=== PATIENT | female | born 1930 | race Caucasian/White ===

== ENCOUNTER 2017-08-07 21:51 | Emergency (ER) | payer MEDICARE, OTHER ==
[2017-08-07] MEDS ORDERED: predniSONE 10 MG Tab PO ONE (23:34)
[2017-08-07] MEDS ORDERED: diphenhydrAMINE 25 MG Cap PO ONE (23:35)
[2017-08-07] MEDS ORDERED: Famotidine 20 MG Tab PO ONE (23:35)
--- NOTE | 2017-08-07 23:45 | EDM.PDOC ---
ED HPI GENERAL MEDICAL PROBLEM - General Chief Complaint: Skin Complaint Stated Complaint: RASH Time Seen by Provider: 08/07/17 23:40 Source of Information: Reports: Patient History Limitations: Reports: No Limitations - History of Present Illness INITIAL COMMENTS - FREE TEXT/NARRATIVE: 86 yo female presents with onset of an itchy rash early this evening. Is on no new med and can't think of anything she ate that may be causing this. No self tx before arrival. Onset: Today Onset Date: 08/07/17 Onset Time: 19:00 Duration: Hour(s):, Getting Worse Location: Reports: Generalized (Worse medial thighs) Quality: Reports: Other (pruritic) Severity: Moderate Improves with: Reports: None Worsens with: Reports: Other (time) Context: Reports: Other (unknown) Associated Symptoms: Reports: No Other Symptoms Treatments DIRECTOR OF BUSINESS SERVICES: Reports: Other (see below) (none) Generalized Pain Score (Numeric/FACES): 5 - Related Data Allergies Allergy/AdvReac Type Severity Reaction Status Date / Time Penicillins Allergy Rash Verified 08/07/17 23:08 Home Meds: Home Meds Hydrochlorothiazide [Hydrochlorothiazide] 1 tab PO DAILY 08/07/17 [History] Levothyroxine 1 tab PO DAILY 08/07/17 [History] Prednisone [IJD: Prednisone] 10 mg PO ASDIRECTED #18 tab 08/07/17 [Rx] Past Medical History HEENT History: Reports: Hard of Hearing, Impaired Vision Cardiovascular History: Reports: Hypertension 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 Oncologic Surgical History: Reports: Lumpectomy Social & Family History - Tobacco Use Smoking Status *Q: Never Smoker Second Hand Smoke Exposure: No - Caffeine Use Caffeine Use: Reports: Coffee, Tea - Alcohol Use Days Per Week of Alcohol Use: 0 - Recreational Drug Use Recreational Drug Use: No ED ROS GENERAL - Review of Systems Review Of Systems: See Below Constitutional: Reports: No Symptoms HEENT: Reports: No Symptoms Respiratory: Reports: No Symptoms Cardiovascular: Reports: No Symptoms Skin: Reports: Pruritis, Erythema. Denies: Urticaria Neurological: Reports: No Symptoms ED EXAM, SKIN/RASH Exam: See Below Exam Limited By: No Limitations General Appearance: Alert, WD/WN, No Apparent Distress Eye Exam: Bilateral Eye: Normal Inspection Ears: Normal External Exam, Normal Canal, Hearing Grossly Normal Nose: Normal Inspection, Normal Mucosa, No Blood Throat/Mouth: Normal Inspection, Normal Lips, Normal Oropharynx, Normal Voice, No Airway Compromise Head: Atraumatic, Normocephalic Neck: Normal Inspection Respiratory/Chest: No Respiratory Distress, Lungs Clear, Normal Breath Sounds, No Accessory Muscle Use Cardiovascular: Regular Rate, Rhythm, No Edema GI/Abdominal: Normal Bowel Sounds, Soft, Non-Tender, No Distention Back Exam: Normal Inspection. No: CVA Tenderness (R), CVA Tenderness (L) Extremities: Normal Inspection, Normal Range of Motion, Non-Tender, No Pedal Edema Neurological: Alert, Oriented, CN II-XII Intact, Normal Cognition, No Motor/ Sensory Deficits Psychiatric: Normal Affect, Normal Mood Skin: Warm, Dry, Intact, Normal Color, No Rash Location, Skin: Generalized (worse to medial thigh) Characteristics: Patchy, Erythematous Associated features: Induration (minimal) Lymphatic: No Adenopathy Course - Vital Signs Last Recorded V/S: Last Vital Signs Temp 35.6 C 08/07/17 23:18 Pulse 72 08/07/17 23:18 Resp 16 08/07/17 23:18 BP 181/94 H 08/07/17 23:18 Pulse Ox 96 08/07/17 23:18 - Orders/Labs/Meds Meds: Medications Discontinued Medications Generic Name Dose Route Start Last Admin Trade Name Freq PRN Reason Stop Dose Admin Diphenhydramine HCl 50 mg 08/07/17 23:35 Benadryl PO 08/07/17 23:36 ONETIME ONE Famotidine 20 mg 08/07/17 23:35 Pepcid PO 08/07/17 23:36 ONETIME ONE Prednisone 20 mg 08/07/17 23:34 Prednisone PO 08/07/17 23:35 ONETIME ONE Departure - Departure Time of Disposition: 23:45 Disposition: Home, Self-Care 01 Condition: Good Clinical Impression: Pruritic erythematous rash - Discharge Information Prescriptions: Prednisone [IJD: Prednisone] 10 mg PO ASDIRECTED #18 tab Referrals: Shun Hughes PA-C [Primary Care Provider] - Forms: ED Department Discharge Additional Instructions: Take prednisone as directed until gone. Take cetirizine 10 mg daily. Take famotidine 20 mg daily. Use diphenhydramine 50 mg every 4-6 hrs as needed for itching. Recheck with your doctor if not completely better and stay better by next week. Return if worse.
== END 2017-08-07 23:50 | disposition home or self-care (01) ==
LOC: JP.ED 21:51
DX: L29.9 Pruritus, unspecified (principal); E03.9 Hypothyroidism, unspecified; I10 Essential (primary) hypertension; Z88.0 Allergy status to penicillin
CPT/HCPCS: 99283; A9270

== ENCOUNTER 2019-03-13 09:19 | Emergency (ER) | payer MEDICARE, OTHER ==
[2019-03-13] MEDS ORDERED: Meclizine 25 MG Tab PO ONE (10:18)
[2019-03-13] MEDS ORDERED: Ondansetron 4 MG Tab.DIS PO ONE (10:18)
--- NOTE | 2019-03-13 10:22 | EDM.PDOC ---
ED HPI GENERAL MEDICAL PROBLEM - General Chief Complaint: General Stated Complaint: DIZZY, NAUSEATED Time Seen by Provider: 03/13/19 10:10 Source of Information: Reports: Patient, RN Notes Reviewed History Limitations: Reports: No Limitations - History of Present Illness INITIAL COMMENTS - FREE TEXT/NARRATIVE: 88-year-old female presents emergency department today complaint of dizziness, she states the dizziness started at 2 this morning felt nauseated she describes some chest discomfort not really pain no shortness of breath no diaphoresis she has had some dizziness past but not to this extent. She did have difficulty walking felt like she was going to fall down. - Related Data Allergies Allergy/AdvReac Type Severity Reaction Status Date / Time Penicillins Allergy Rash Verified 03/13/19 09:53 Home Meds: Home Meds Levothyroxine 75 mcg PO DAILY 08/07/17 [History] hydroCHLOROthiazide [Hydrochlorothiazide] 25 mg PO DAILY 08/07/17 [History] Aspirin [Adult Low Dose Aspirin EC] 162 mg PO DAILY 07/20/18 [History] Cholecalciferol (Vitamin D3) [Vitamin D3] 1,000 unit PO DAILY 07/20/18 [History] Lactobacillus Acidophilus [Acidophilus] 1 tab PO DAILY 07/20/18 [History] Vitamin B Complex 1 cap PO DAILY 07/20/18 [History] Ascorbic Acid 500 mg PO DAILY 08/05/18 [History] Silymarin 100 mg PO DAILY 08/05/18 [History] atorvaSTATin [Lipitor] 0 mg PO BEDTIME 03/13/19 [History] Past Medical History HEENT History: Reports: Hard of Hearing, Impaired Vision Cardiovascular History: Reports: High Cholesterol, Hypertension 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 - Infectious Disease History Infectious Disease History: Reports: Chicken Pox, Measles, Mumps - Past Surgical History GI Surgical History: Reports: Colonoscopy Female Surgical History: Reports: Breast Biopsy, Hysterectomy, Other (See Below) Other Female Surgeries/Procedures: r lumpectomy. Oncologic Surgical History: Reports: Lumpectomy Social & Family History - Tobacco Use Smoking Status *Q: Never Smoker Second Hand Smoke Exposure: No - Caffeine Use Caffeine Use: Reports: Tea Other Caffeine Use: not daily - Alcohol Use Days Per Week of Alcohol Use: 2 Number of Drinks Per Day: 1 Total Drinks Per Week: 2 - Recreational Drug Use Recreational Drug Use: Yes ED ROS GENERAL - Review of Systems Review Of Systems: See Below Constitutional: Reports: No Symptoms HEENT: Reports: Vertigo Respiratory: Reports: No Symptoms Cardiovascular: Reports: Chest Pain (Chest discomfort), Edema GI/Abdominal: Reports: No Symptoms : Reports: No Symptoms Musculoskeletal: Reports: No Symptoms Skin: Reports: No Symptoms Neurological: Reports: Dizziness ED EXAM, GENERAL - Physical Exam Exam: See Below Free Text/Narrative:: General: Elderly female, not in any distress, alert and oriented x3 HEENT: head is atraumatic normocephalic, eyes pupils equal round reactive to light, sclera clear no conjunctivitis appreciated, extraocular eye movements intact. Ears tympanic membranes clear and corey landmarks and light reflex are present bilaterally canals are clear. Nose no septal deviation, nares are clear, no blood present. Mouth mucosa is moist and pink no erythema or exudate noted in soft palate, tongue is midline uvula is midline, dentition is intact. Neck: Supple no thyromegaly no tracheal deviation. Nodes: Cervical nodes subclavicular nodes nontender no palpable lymphadenopathy noted. Lungs: clear to auscultation bilaterally with symmetrical respirations, no adventitious noise appreciated. CV: Regular rate and rhythm S1 and S2 appreciated no murmurs rubs or gallops noted. Abdomen: Soft, nontender, no palpable masses or organomegaly appreciated, no distention no guarding bowel sounds are present, Head impulse test: Negative loss of fixation with corrective saccades when head turned to the bilateral Nystagmus: unidirectional, horizontal 0-beating nystagmus Skew deviation: grossly absent. Neuro: Cranial nerves II test with pupillary light reflex 4 mm to 2 mm bilaterally, CN III test pupillary constriction, lid elevation and eye abduction bilaterally, CN IV downward movement of eyes bilaterally, CN V good jaw movement, CN lateral deviation of the eyes bilaterally to finger movement , CN VII symmetrical smile shows teeth without difficulty, CN VIII pass finger rub to ears bilaterally, CN IX adequate voice and tone, CN X adequate voice and tone no difficulty swallowing, CN XI can shrug shoulders without difficulty, CN XII can stick tongue out without difficulty, cranial nerves II to XII intact as tested, power is 5 out 5 in upper and lower extremities, can do finger to nose without difficulty, no dysdiadochokinesis, no difficulty with rapid alternating movements can do [id number] without difficulty, Romberg is negative, no focal neurologic deficit Skin: Warm and dry, intact Extremities: Trace lower extremity edema appreciated, pedal pulse is +2. Course - Vital Signs Last Recorded V/S: Last Vital Signs Temp 95.1 F L 03/13/19 09:57 Pulse 83 03/13/19 09:57 Resp 9 L 03/13/19 09:57 BP 156/75 H 03/13/19 09:57 Pulse Ox 96 03/13/19 09:57 Orthostatic Blood Pressure [ 163/79 Supine] Orthostatic Blood Pressure [ 166/71 Sitting] Orthostatic Blood Pressure [ 156/75 Standing] - Orders/Labs/Meds Orders: Active Orders 24 hr Category Date Time Status Cardiac Monitoring [RC] .As Directed Care 03/13/19 10:17 Active EKG Documentation Completion [RC] ASDIRECTED Care 03/13/19 10:18 Active EKG 12 Lead [EK] Stat Ther 03/13/19 10:17 Ordered Labs: Laboratory Tests 03/13/19 03/13/19 Range/Units 10:17 10:25 WBC 4.9 (4.5-11.0) K/uL RBC 4.12 (3.30-5.50) M/uL Hgb 13.3 (12.0-15.0) g/dL Hct 39.8 (36.0-48.0) % MCV 97 (80-98) fL MCH 32 H (27-31) pg MCHC 33 (32-36) % Plt Count 150 (150-400) K/uL Neut % (Auto) 63 (36-66) % Lymph % (Auto) 26 (24-44) % Emmet % (Auto) 9 H (2-6) % Eos % (Auto) 2 (2-4) % Baso % (Auto) 1 (0-1) % Sodium 142 (140-148) mmol/L Potassium 3.9 (3.6-5.2) mmol/L Chloride 106 (100-108) mmol/L Carbon Dioxide 27 (21-32) mmol/L Anion Gap 9.3 (5.0-14.0) mmol/L BUN 23 H (7-18) mg/dL Creatinine 0.8 (0.6-1.0) mg/dL Est Cr Clr Drug Dosing 41.32 mL/min Estimated GFR (MDRD) > 60 (>60) Glucose 96 (74-106) mg/dL Calcium 8.7 (8.5-10.1) mg/dL Total Bilirubin 0.5 (0.2-1.0) mg/dL AST 31 (15-37) U/L ALT 31 (12-78) U/L Alkaline Phosphatase 55 (46-116) U/L Troponin I < 0.017 (0.000-0.056) ng/mL Total Protein 7.1 (6.4-8.2) g/dL Albumin 3.6 (3.4-5.0) g/dL Globulin 3.5 (2.3-3.5) g/dL Albumin/Globulin Ratio 1.0 L (1.2-2.2) Meds: Medications Discontinued Medications Generic Name Dose Route Start Last Admin Trade Name Freq PRN Reason Stop Dose Admin Meclizine HCl 25 mg 03/13/19 10:18 03/13/19 10:28 Antivert PO 03/13/19 10:19 25 mg ONETIME ONE Administration Ondansetron HCl 4 mg 03/13/19 10:18 03/13/19 10:29 Zofran Odt PO 03/13/19 10:19 4 mg ONETIME ONE Administration Departure - Departure Time of Disposition: 11:16 Disposition: Home, Self-Care 01 Condition: Fair Clinical Impression: Dizziness - Discharge Information Referrals: PCP,None [Primary Care Provider] - Forms: ED Department Discharge Additional Instructions: Use the meclizine as needed for dizziness symptoms, Please followup with your primary care provider in 3-5 days if not better, please call return to the emergency department with worsening of symptoms. - My Orders Last 24 Hours: My Active Orders 03/13/19 10:17 Cardiac Monitoring [RC] .As Directed EKG 12 Lead [EK] Stat 03/13/19 10:18 EKG Documentation Completion [RC] ASDIRECTED - Assessment/Plan Last 24 Hours: My Active Orders 03/13/19 10:17 Cardiac Monitoring [RC] .As Directed EKG 12 Lead [EK] Stat 03/13/19 10:18 EKG Documentation Completion [RC] ASDIRECTED Plan: Assessment Acuity = acute Site and laterality = dizziness Etiology = unclear etiology Manifestations = nausea now resolved Location of injury = Home Lab values = CBC, CMP, troponin all within normal limits EKG demonstrates sinus rhythm left ventricular hypertrophy however no old EKGs available Plan She had good relief with Zofran and meclizine provided a discharge home with meclizine 25 mg one tab by mouth 3 times a day when necessary follow-up primary care 3-5 days if no improvement This note was dictated using [employer] voice recognition software please call with any questions on syntax or grammar.
== END 2019-03-13 11:24 | disposition home or self-care (01) ==
LOC: JP.ED 09:19
DX: R42 Dizziness and giddiness (principal); E78.00 Pure hypercholesterolemia, unspecified; I10 Essential (primary) hypertension; E03.9 Hypothyroidism, unspecified; Z79.899 Other long term (current) drug therapy; Z79.82 Long term (current) use of aspirin; Z88.0 Allergy status to penicillin
CPT/HCPCS: 36415; 80053; 84484; 85025; 93005; 99284; A9270